=== PATIENT | female | born 1980 | race Hispanic/Latino ===

== ENCOUNTER 2022-07-30 22:51 | Emergency (ER) | payer MEDICAID ==
[~2022-07-30] VITALS: Ht 160 cm; Wt 62.1 kg
[2022-07-30] MEDS ORDERED: IBUPROFEN 600 MG TABLET PO ONE (23:30)
[2022-07-31 00:28] LABS: APPEARANCE,URINE CLOUDY (CLEAR); BILIRUBIN,URINE NEGATIVE (NEGATIVE); COLOR,URINE YELLOW (YELLOW); GLUCOSE, URINE (UA) NEGATIVE (NEGATIVE); KETONES,URINE 60 mg/dL (NEGATIVE); LEUKOCYTE ESTERASE ,URINE 75 Leu/uL (NEGATIVE); NITRATE,URINE NEGATIVE (NEGATIVE); PROTEIN,URINE 30 mg/dL (NEGATIVE); UROBILINOGEN,URINE >=8.0 mg/dL (0.2-1.0)
[2022-07-31] MEDS ORDERED: ACETAMINOPHEN 500 MG TABLET PO ONE (00:30)
[2022-07-31] MEDS ORDERED: ONDANSETRON 4MG INJ IVP ONE (00:30)
[2022-07-31] MEDS ORDERED: 0.9%NACL 1000ML 1,000 ML IV ONE (00:30)
[2022-07-31 00:31] LABS: BASOPHILS % (AUTO) 0.4 % (0.0-5.0); CREATININE 0.7 mg/dL (0.5-1.5); EOSINOPHILS % (AUTO) 0.5 % (0.0-8.0); HEMATOCRIT 32.7 % (36-48); LYMPHOCYTES % (AUTO) 19.2 % (21.0-51.0); MEAN CORPUSCULAR HEMOGLOBIN 29.5 pg (27.0-33.0); MEAN CORPUSCULAR HGB CONC 33.9 g/dL (32.0-36.0); MONOCYTES % (AUTO) 3.8 % (3.0-13.0); NEUTROPHILS % (AUTO) 75.8 % (40.0-77.0); PLATELET COUNT (AUTO) 275 K/uL (130-400); POTASSIUM 3.7 mmol/L (3.5-5.1); RED BLOOD CELL COUNT(AUTO) 3.76 MIL/uL (4.00-5.50); RED CELL DISTRIBUTION WIDTH 11.9 % (11.0-15.5); WHITE BLOOD COUNT (AUTO) 7.9 K/uL (4.8-10.8)
[2022-07-31 00:34] LABS: BACTERIA,URINE RARE /HPF (None Seen); MUCUS,URINE FEW LPF (None Seen); SQUAMOUS EPITHELIAL CELL,UR MANY /HPF (0-2)
[2022-07-31 00:36] LABS: TOTAL PROTEIN, SERUM 7.6 g/dL (6.0-8.3)
[2022-07-31] MEDS ORDERED: IBUP-2070 PO (02:12)
[2022-07-31] MEDS ORDERED: D-ME118S47 PO (02:12)
[2022-07-31] MEDS ORDERED: CEFU500T67 PO (02:12)
[2022-07-31 02:22] VITALS: BP 132/74
[2022-07-31] MEDS ORDERED: CEFTRIAXONE 1G VIAL IVPB ONE (02:30)
== END 2022-07-31 02:31 | disposition home or self-care (01) ==
LOC: EDH 22:51
DX: J06.9 Acute upper respiratory infection, unspecified (principal); N39.0 Urinary tract infection, site not specified; R05.9 Cough, unspecified; R09.89 Other specified symptoms and signs involving the circulatory and respiratory systems; Z20.822 Contact with and (suspected) exposure to COVID-19; Z90.49 Acquired absence of other specified parts of digestive tract; Z98.890 Other specified postprocedural states; Z88.3 Allergy status to other anti-infective agents
CPT/HCPCS: 99284; 87635; 80053; 85025; 87088; 87804 ×2; 81001; 36415; 96374; 96375; C9803; J7030; J0696; J2405